=== PATIENT | male | born 1955 | race Caucasian/White ===

== ENCOUNTER 2019-03-11 02:24 | Inpatient (IN) | payer OTHER ==
[~2019-03-11] VITALS: Ht 180.3 cm; Wt 111.1 kg
[2019-03-11 03:13] LABS: BASOPHIL % 0.8 % (0-2); PLATELET COUNT 274 x10^3mcL (130-400); RED CELL DISTRIBUTION WIDTH 14.3 % (11.5-14.5)
[2019-03-11 04:21] LABS: ALBUMIN 3.5 g/dL (3.4-5.0); BILIRUBIN TOTAL 0.26 mg/dL (0.20-1.00); CALCIUM 8.4 mg/dL (8.5-10.1); CREATININE SERUM 1.3 mg/dL (0.7-1.3); TOTAL PROTEIN, SERUM 7.1 g/dL (6.4-8.2)
[2019-03-11 04:32] LABS: POTASSIUM SERUM 2.8 mmol/L (3.5-5.1)
[2019-03-11 06:05] LABS: MAGNESIUM 1.8 mg/dL (1.8-2.4); PHOSPHOROUS 3.9 mg/dL (2.5-4.9)
[2019-03-11 07:00] LABS: AMPHETAMINE QUAL UR NONE DETECTED (See below)
[2019-03-11 07:04] LABS: UA SPECIFIC GRAVITY <=1.005 (1.005-1.035)
[2019-03-11 07:05] LABS: microscopic required? YES; urine erythrocyte 1+ (NEGATIVE)
[2019-03-11 07:21] VITALS: BP 141/84
[2019-03-11 08:11] VITALS: BP 141/84
[2019-03-11 09:17] VITALS: BP 169/96
[2019-03-11 10:35] VITALS: BP 141/84
[2019-03-11 12:18] VITALS: BP 161/92
[2019-03-11 13:06] VITALS: BP 161/92
== END 2019-03-11 14:55 | disposition home or self-care (01) | DRG 880 ==
LOC: ED 02:24 → DU 05:30
PROVIDERS: Emergency Medicine; ADMIT Family Medicine
DX: F41.0 Panic disorder [episodic paroxysmal anxiety] (principal); I10 Essential (primary) hypertension; E87.6 Hypokalemia; E11.65 Type 2 diabetes mellitus with hyperglycemia; R74.0 Nonspecific elevation of levels of transaminase and lactic acid dehydrogenase [LDH]; E78.5 Hyperlipidemia, unspecified; E78.1 Pure hyperglyceridemia; Z79.84 Long term (current) use of oral hypoglycemic drugs
CPT/HCPCS: 82962; 83880; 85378; 94150; J1644; J1940; J3480; J7040; J7620; Q0092

== ENCOUNTER 2020-01-16 13:25 | Emergency (ER) | payer OTHER ==
[~2020-01-16] VITALS: Ht 180.3 cm; Wt 117.9 kg
[2020-01-16 13:39] VITALS: Ht 180.3 cm; Wt 117.9 kg
[2020-01-16 15:46] VITALS: BP 152/90
== END 2020-01-16 15:47 | disposition home or self-care (01) ==
LOC: ED 13:25
DX: J18.9 Pneumonia, unspecified organism (principal); I10 Essential (primary) hypertension; E11.9 Type 2 diabetes mellitus without complications
CPT/HCPCS: J7512; J7613; J7644